=== PATIENT | female | born 1965 | race Two or more races ===

== ENCOUNTER 2023-09-07 09:01 | Outpatient (CLI) | payer OTHER, MEDICAID | END 2023-09-07 23:59 | disposition home or self-care (01) | LOC: RAD 09:01 | PROVIDERS: ATTEND Nurse Practitioner | DX: N28.1 Cyst of kidney, acquired (principal); R10.13 Epigastric pain | CPT/HCPCS: 76700 ==

== ENCOUNTER 2024-10-04 07:13 | Outpatient (CLI) | payer OTHER, MEDICAID | END 2024-10-04 23:59 | disposition home or self-care (01) | LOC: MRI02 07:13 | PROVIDERS: ATTEND Nurse Practitioner Adult Health | DX: M47.817 Spondylosis without myelopathy or radiculopathy, lumbosacral region (principal); M48.07 Spinal stenosis, lumbosacral region; M43.16 Spondylolisthesis, lumbar region; M54.50 Low back pain, unspecified; M25.552 Pain in left hip | CPT/HCPCS: 72148 ==